=== PATIENT | male | born 1960 | race Two or more races ===

== ENCOUNTER 2020-05-31 18:30 | Inpatient (IN) | payer MEDICARE, MEDICAID ==
[~2020-05-31] VITALS: Ht 170.2 cm; Wt 88.2 kg
[2020-05-31] MEDS ORDERED: methylPREDNISolone SOD SUCC 125 MG/2 ML VL IV ONE (18:45)
[2020-05-31] MEDS ORDERED: ZINC SULFATE 220mg CAP or TAB PO ONE (18:45)
[2020-05-31] MEDS ORDERED: ASCORBIC ACID 500 MG TAB PO ONE (18:45)
[2020-05-31] MEDS ORDERED: REMDESIVIR PER PHARMACY 0 ML IV SCH (18:45)
[2020-05-31 22:25] LABS: Basophils # (auto) 0 10 ^3/uL (0-0.2); Basophils % (auto) 0.5 % (0.0-2.0); Eosinophils # (auto) 0.1 10 ^3/uL (0-0.8); Eosinophils % (auto) 1.1 % (0.0-7.0); Hematocrit 31.2 % (41.0-53.0); Hemoglobin 10.9 g/dL (13.5-17.5); Lymphocytes # (auto) 0.6 10 ^3/uL (0.4-5.4); Lymphocytes % (auto) 11.2 % (10.0-50.0); Mean Corpuscular Hemoglobin 32.3 pg (28.0-32.0); Mean Corpuscular Hgb Conc. 34.9 g/dL (32.0-36.0); Mean Corpuscular Volume 92.7 fL (80.0-100.0); Monocytes # (auto) 0.4 10 ^3/uL (0-1.3); Monocytes % (auto) 6.5 % (0.0-12.0); Neutrophils # (auto) 4.6 10 ^3/uL (1.6-8.6); Neutrophils % (auto) 80.7 % (37.0-80.0); Nucleated Red Blood Cells % 0.1 %; Platelet Count (auto) 157 10^3/uL (140-450); Red Blood Cells 3.36 10^6/uL (4.5-5.90); White Blood Cell 5.7 10^3/uL (4.4-10.8)
[2020-05-31 22:54] LABS: Alanine Aminotransferase 51 U/L (16-61); Albumin 3.3 g/dL (3.4-5.0); Anion Gap 6 (5-15); Blood Urea Nitrogen 28 mg/dL (7-18); Calcium 7.7 mg/dL (8.5-10.1); Carbon Dioxide 27 mmol/L (21-32); Chloride 99 mmol/L (98-107); Glucose 158 mg/dL (74-106); Potassium 4.4 mmol/L (3.5-5.1); Sodium 132 mmol/L (136-145)
[2020-05-31 23:02] LABS: Alkaline Phosphatase 130 U/L (45-117); Aspartate Aminotransferase 36 U/L (15-37); BUN/Creatinine Ratio 4.4; Bilirubin, Total 0.5 mg/dL (0.2-1.0); CRP High Sensitivity 6.74 mg/dL (< 0.3); GFR African American 12 mL/min; GFR Non-African American 10 mL/min; Total Protein 7.6 g/dL (6.4-8.2)
[2020-06-01] MEDS ORDERED: HYDROcodone-ACET 5/325MG TAB PO PRN
[2020-06-01] MEDS ORDERED: DOCUSATE SOD 100 MG CAP PO PRN
[2020-06-01] MEDS ORDERED: ONDANSETRON HCL 4 MG/2 ML VIAL IV PRN
[2020-06-01] MEDS ORDERED: DEXTROSE (50%) 50ML SYRG IV PRN
[2020-06-01] MEDS ORDERED: ACETAMINOPHEN 500 MG TAB PO PRN
[2020-06-01] MEDS ORDERED: NITROGLYCERIN 0.4 MG SL TAB SL PRN
[2020-06-01] MEDS ORDERED: MORPHINE SULF INJ 2 MG/ML SYRINGE 1ML IV PRN
[2020-06-01] MEDS: hydrALAZINE HCL 20 MG/ML VL IV PRN ×3 (02:44→21:38)
[2020-06-01 02:50] VITALS: BP 169/93
[2020-06-01 03:40] VITALS: BP 142/82
[2020-06-01] MEDS: ACCU-CHEK COMFORT CURVE STRIP VI SCH ×4 (06:39→22:22)
[2020-06-01] MEDS: LEVOTHYROXINE SODIUM 25 MCG TAB PO SCH (06:39)
[2020-06-01] MEDS: InsuLIN REG 1unit/0.01ml Soln (100units/ml) SC SCH ×4 (06:42→22:25)
[2020-06-01] MEDS: SODIUM CHLOR 0.9% PF (SALINE LOCK) 10ML VIAL/SYR IV SCH ×3 (06:44→22:22)
[2020-06-01 07:13] LABS: Basophils # (auto) 0 10 ^3/uL (0-0.2); Basophils % (auto) 0.6 % (0.0-2.0); Eosinophils # (auto) 0 10 ^3/uL (0-0.8); Hematocrit 28.7 % (41.0-53.0); Lymphocytes # (auto) 0.7 10 ^3/uL (0.4-5.4); Lymphocytes % (auto) 12.2 % (10.0-50.0); Mean Corpuscular Hemoglobin 31.8 pg (28.0-32.0); Mean Corpuscular Volume 90.9 fL (80.0-100.0); Monocytes # (auto) 0.2 10 ^3/uL (0-1.3); Monocytes % (auto) 4.4 % (0.0-12.0); Neutrophils # (auto) 4.4 10 ^3/uL (1.6-8.6); Neutrophils % (auto) 82.8 % (37.0-80.0); Platelet Count (auto) 163 10^3/uL (140-450); Red Blood Cells 3.16 10^6/uL (4.5-5.90); Red Cell Distribution Width 14.7 % (11.8-14.3); White Blood Cell 5.3 10^3/uL (4.4-10.8)
[2020-06-01 07:33] LABS: Potassium 4.9 mmol/L (3.5-5.1)
[2020-06-01 07:46] LABS: BUN/Creatinine Ratio 5.5; Bilirubin, Total 0.5 mg/dL (0.2-1.0); Calcium 7.9 mg/dL (8.5-10.1); Total Protein 7.1 g/dL (6.4-8.2)
[2020-06-01 08:00] VITALS: BP 157/97
[2020-06-01] MEDS ORDERED: HEPARIN SODIUM (PORCINE) 5000 UNITS/ML 1ML VIAL ONE (09:33)
[2020-06-01] MEDS: HEPARIN SODIUM (PORCINE) 5000 UNITS/ML 1ML VIAL SC SCH ×2 (09:42→22:10)
[2020-06-01] MEDS: ASCORBIC ACID 1,000 MG TAB PO SCH (09:42)
[2020-06-01] MEDS: CHOLECALCIFEROL (VITD3) 2,000 UNIT CAP PO SCH (09:42)
[2020-06-01] MEDS: B-COMPLEX W/ C & FOLIC ACID(NEPHROVITE TAB) PO SCH (09:43)
[2020-06-01] MEDS: ZINC SULFATE 220mg CAP or TAB PO SCH (09:43)
[2020-06-01] MEDS: FAMOTIDINE (10MG/ML) 2ML VL IV SCH ×2 (09:43→22:22)
[2020-06-01] MEDS: DOXYCYCLINE 100MG/250ML 250 ML IV SCH ×2 (09:43→22:00)
[2020-06-01] MEDS ORDERED: DexAMETHasone SOD PHOS 10MG/1ML VIAL INJ IV SCH (10:00)
[2020-06-01] MEDS: BUDESONIDE (INHALATION) 180 MCG IH IN SCH ×2 (10:00→22:00)
[2020-06-01 16:00] VITALS: BP 170/104
[2020-06-01] MEDS ORDERED: REMDESIVIR 200 MG in NS 210ml LOADING DOSE ADULT IV ONE (20:00)
[2020-06-02] VITALS: BP 160/84
[2020-06-02] MEDS: hydrALAZINE HCL 20 MG/ML VL IV PRN ×2 (03:01→18:26)
[2020-06-02 04:12] VITALS: BP 148/81
[2020-06-02] MEDS: SODIUM CHLOR 0.9% PF (SALINE LOCK) 10ML VIAL/SYR IV SCH ×3 (06:09→21:50)
[2020-06-02] MEDS: LEVOTHYROXINE SODIUM 25 MCG TAB PO SCH (06:31)
[2020-06-02] MEDS: ACCU-CHEK COMFORT CURVE STRIP VI SCH ×4 (06:31→21:53)
[2020-06-02] MEDS: InsuLIN REG 1unit/0.01ml Soln (100units/ml) SC SCH ×4 (06:37→21:52)
[2020-06-02] MEDS ORDERED: SODIUM CHL 0.9% 1000 ML BAG XX ONE (07:00)
[2020-06-02 08:00] VITALS: BP 169/98
[2020-06-02] MEDS: FAMOTIDINE (10MG/ML) 2ML VL IV SCH (08:47)
[2020-06-02] MEDS: DexAMETHasone SOD PHOS 10MG/1ML VIAL INJ IV SCH (08:47)
[2020-06-02] MEDS: CHOLECALCIFEROL (VITD3) 2,000 UNIT CAP PO SCH (08:48)
[2020-06-02] MEDS: DOXYCYCLINE 100MG/250ML 250 ML IV SCH ×2 (08:48→21:50)
[2020-06-02] MEDS: ASCORBIC ACID 1,000 MG TAB PO SCH (08:48)
[2020-06-02] MEDS: B-COMPLEX W/ C & FOLIC ACID(NEPHROVITE TAB) PO SCH (08:48)
[2020-06-02] MEDS: ZINC SULFATE 220mg CAP or TAB PO SCH (08:48)
[2020-06-02] MEDS: HEPARIN SODIUM (PORCINE) 5000 UNITS/ML 1ML VIAL SC SCH ×2 (08:55→21:51)
[2020-06-02 09:07] LABS: Albumin 3.2 g/dL (3.4-5.0); BUN/Creatinine Ratio 7.2; Calcium 7.9 mg/dL (8.5-10.1); Potassium 4.6 mmol/L (3.5-5.1)
[2020-06-02 09:10] LABS: Bilirubin, Total 0.5 mg/dL (0.2-1.0); Total Protein 6.6 g/dL (6.4-8.2)
[2020-06-02] MEDS: BUDESONIDE (INHALATION) 180 MCG IH IN SCH ×2 (10:00→18:28)
[2020-06-02] MEDS ORDERED: MORPHINE SULF INJ 2 MG/ML SYRINGE 1ML IV PRN (13:00)
[2020-06-02 16:00] VITALS: BP 169/95
[2020-06-02] MEDS: REMDESIVIR 100mg 100 MG in SODIUM CHL 0.9% 230 ML IV SCH (16:30)
[2020-06-02] MEDS: ALBUTEROL SULF HFA 90MCG INH 200DOSE IN PRN (18:28)
[2020-06-02] MEDS: LORazepam 2MG/ML-1ML VIAL IV PRN (19:02)
[2020-06-02] MEDS ORDERED: EPOETIN ALFA 10,000 UNIT/1 ML VIAL SC ONE (21:00)
[2020-06-02] MEDS: NIFEdipine ER 30 MG TAB PO SCH (21:50)
[2020-06-03] VITALS: BP 170/91
[2020-06-03] MEDS: hydrALAZINE HCL 20 MG/ML VL IV PRN (01:47)
[2020-06-03] MEDS: LORazepam 2MG/ML-1ML VIAL IV PRN ×2 (02:10→20:19)
[2020-06-03] MEDS: SODIUM CHLOR 0.9% PF (SALINE LOCK) 10ML VIAL/SYR IV SCH ×3 (06:32→21:16)
[2020-06-03] MEDS: ACCU-CHEK COMFORT CURVE STRIP VI SCH ×4 (06:33→21:16)
[2020-06-03] MEDS: LEVOTHYROXINE SODIUM 25 MCG TAB PO SCH (06:33)
[2020-06-03] MEDS: InsuLIN REG 1unit/0.01ml Soln (100units/ml) SC SCH ×4 (06:35→21:13)
[2020-06-03] MEDS: BUDESONIDE (INHALATION) 180 MCG IH IN SCH ×2 (07:18→19:24)
[2020-06-03] MEDS: ALBUTEROL SULF HFA 90MCG INH 200DOSE IN PRN ×2 (07:18→19:24)
[2020-06-03 08:00] VITALS: BP 149/84
[2020-06-03] MEDS: NIFEdipine ER 30 MG TAB PO SCH (10:00)
[2020-06-03] MEDS: DOXYCYCLINE 100MG/250ML 250 ML IV SCH ×2 (11:03→21:15)
[2020-06-03] MEDS: DexAMETHasone SOD PHOS 10MG/1ML VIAL INJ IV SCH (11:03)
[2020-06-03] MEDS: FAMOTIDINE 20 MG TAB PO SCH (11:05)
[2020-06-03] MEDS: CHOLECALCIFEROL (VITD3) 2,000 UNIT CAP PO SCH (11:05)
[2020-06-03] MEDS: ZINC SULFATE 220mg CAP or TAB PO SCH (11:05)
[2020-06-03] MEDS: ASCORBIC ACID 1,000 MG TAB PO SCH (11:05)
[2020-06-03] MEDS: B-COMPLEX W/ C & FOLIC ACID(NEPHROVITE TAB) PO SCH (11:05)
[2020-06-03] MEDS: HEPARIN SODIUM (PORCINE) 5000 UNITS/ML 1ML VIAL SC SCH ×2 (11:07→21:13)
[2020-06-03] MEDS ORDERED: CLON0.1T PO (14:17)
[2020-06-03] MEDS ORDERED: MIRT-66 PO (14:17)
[2020-06-03] MEDS ORDERED: SODI5PAK PO (14:17)
[2020-06-03] MEDS ORDERED: RIS1T PO (14:17)
[2020-06-03] MEDS ORDERED: NIFE90TA49 PO (14:17)
[2020-06-03] MEDS ORDERED: INSU1.2I SC (14:17)
[2020-06-03] MEDS ORDERED: CINA30TA3 PO (14:17)
[2020-06-03] MEDS ORDERED: BENZ1TAB2 PO (14:17)
[2020-06-03] MEDS ORDERED: SEVE800T10 PO (14:17)
[2020-06-03] MEDS ORDERED: ATOR10TA PO (14:17)
[2020-06-03] MEDS ORDERED: DULO1CAP5 PO (14:17)
[2020-06-03] MEDS ORDERED: DULA0.5I SC (14:17)
[2020-06-03] MEDS ORDERED: INSLISPI SC (14:17)
[2020-06-03] MEDS ORDERED: DONE1TAB88 PO (14:17)
[2020-06-03] MEDS ORDERED: LEVO75TA6 PO (14:17)
[2020-06-03] MEDS ORDERED: LISI-646 PO (14:17)
[2020-06-03] MEDS ORDERED: MEMA1TAB5 PO (14:17)
[2020-06-03] MEDS ORDERED: DOCU100T15 PO (14:17)
[2020-06-03] MEDS ORDERED: CHOL100029 PO (14:17)
[2020-06-03] MEDS ORDERED: ISOS30TA4 PO (14:17)
[2020-06-03] MEDS ORDERED: CLON0.5T3 PO (14:17)
[2020-06-03] MEDS ORDERED: PREG50CA PO (14:17)
[2020-06-03] MEDS ORDERED: METO-158 PO (14:17)
[2020-06-03] MEDS ORDERED: FERR-20 PO (14:17)
[2020-06-03] MEDS: REMDESIVIR 100mg 100 MG in SODIUM CHL 0.9% 230 ML IV SCH (15:32)
[2020-06-03 16:00] VITALS: BP 158/85
[2020-06-03] MEDS ORDERED: SODIUM CHL 0.9% 1000 ML BAG XX ONE (18:15)
[2020-06-03] MEDS: risperiDONE 1 MG TAB PO SCH (21:15)
[2020-06-03] MEDS: clonazePAM 0.5 MG TAB PO SCH (21:15)
[2020-06-04] VITALS: BP 150/89
[2020-06-04] MEDS: ALBUTEROL SULF HFA 90MCG INH 200DOSE IN PRN (05:51)
[2020-06-04] MEDS: BUDESONIDE (INHALATION) 180 MCG IH IN SCH (05:51)
[2020-06-04] MEDS: clonazePAM 0.5 MG TAB PO SCH ×2 (06:06→13:44)
[2020-06-04] MEDS: LEVOTHYROXINE SODIUM 25 MCG TAB PO SCH (06:06)
[2020-06-04] MEDS: SODIUM CHLOR 0.9% PF (SALINE LOCK) 10ML VIAL/SYR IV SCH ×2 (06:06→13:46)
[2020-06-04] MEDS: ACCU-CHEK COMFORT CURVE STRIP VI SCH ×3 (06:29→17:49)
[2020-06-04] MEDS: InsuLIN REG 1unit/0.01ml Soln (100units/ml) SC SCH ×3 (06:29→17:41)
[2020-06-04 07:09] LABS: Basophils # (auto) 0 10 ^3/uL (0-0.2); Basophils % (auto) 0.2 % (0.0-2.0); Eosinophils # (auto) 0 10 ^3/uL (0-0.8); Eosinophils % (auto) 0.1 % (0.0-7.0); Hematocrit 32.1 % (41.0-53.0); Hemoglobin 10.7 g/dL (13.5-17.5); Lymphocytes # (auto) 1.1 10 ^3/uL (0.4-5.4); Lymphocytes % (auto) 16.6 % (10.0-50.0); Mean Corpuscular Hemoglobin 30.9 pg (28.0-32.0); Mean Corpuscular Hgb Conc. 33.3 g/dL (32.0-36.0); Mean Corpuscular Volume 92.8 fL (80.0-100.0); Monocytes # (auto) 0.7 10 ^3/uL (0-1.3); Neutrophils # (auto) 4.9 10 ^3/uL (1.6-8.6); Neutrophils % (auto) 73.1 % (37.0-80.0); Nucleated Red Blood Cells % 0.2 %; Platelet Count (auto) 229 10^3/uL (140-450); Red Blood Cells 3.46 10^6/uL (4.5-5.90); White Blood Cell 6.6 10^3/uL (4.4-10.8)
[2020-06-04 08:00] VITALS: BP 129/71
[2020-06-04] MEDS ORDERED: DULoxetine HCL 30 MG CAP PO SCH (10:00)
[2020-06-04 10:32] LABS: Albumin 3.1 g/dL (3.4-5.0); Calcium 8.5 mg/dL (8.5-10.1)
[2020-06-04 10:42] LABS: Bilirubin, Total 0.4 mg/dL (0.2-1.0); CRP High Sensitivity 9.1 mg/dL (< 0.3); Total Protein 6.7 g/dL (6.4-8.2)
[2020-06-04] MEDS: DOXYCYCLINE 100MG/250ML 250 ML IV SCH (11:59)
[2020-06-04] MEDS: DexAMETHasone SOD PHOS 10MG/1ML VIAL INJ IV SCH (12:00)
[2020-06-04] MEDS: ZINC SULFATE 220mg CAP or TAB PO SCH (12:00)
[2020-06-04] MEDS: risperiDONE 1 MG TAB PO SCH (12:01)
[2020-06-04] MEDS: CHOLECALCIFEROL (VITD3) 2,000 UNIT CAP PO SCH (12:01)
[2020-06-04] MEDS: B-COMPLEX W/ C & FOLIC ACID(NEPHROVITE TAB) PO SCH (12:01)
[2020-06-04] MEDS: ASCORBIC ACID 1,000 MG TAB PO SCH (12:01)
[2020-06-04] MEDS: FAMOTIDINE 20 MG TAB PO SCH (12:01)
[2020-06-04] MEDS: NIFEdipine ER 30 MG TAB PO SCH (12:02)
[2020-06-04] MEDS: HEPARIN SODIUM (PORCINE) 5000 UNITS/ML 1ML VIAL SC SCH (12:11)
[2020-06-04] MEDS: REMDESIVIR 100mg 100 MG in SODIUM CHL 0.9% 230 ML IV SCH (16:19)
[2020-06-04 16:30] VITALS: BP 138/76
[2020-06-06] MEDS ORDERED: FAMOTIDINE 20 MG TAB PO SCH (10:00)
== END 2020-06-04 18:50 | disposition home or self-care (01) | DRG 871 ==
LOC: ER 18:30 → TELE 23:46 → TELE-WESTW 06-01 01:10
PROVIDERS: ADMIT Nurse Practitioner Family; ATTEND Internal Medicine
PROC: XW033E5 Introduction of Remdesivir Anti-infective into Peripheral Vein, Percutaneous Approach, New Technology Group 5 (ICD-10-PCS; principal; 2020-05-31)
PROC: 5A1D70Z Performance of Urinary Filtration, Intermittent, Less than 6 Hours Per Day (ICD-10-PCS; 2020-06-03)
DX: A41.89 Other specified sepsis (principal); U07.1 COVID-19; J12.82 Pneumonia due to coronavirus disease 2019; N18.6 End stage renal disease; J96.01 Acute respiratory failure with hypoxia; I12.0 Hypertensive chronic kidney disease with stage 5 chronic kidney disease or end stage renal disease; E11.65 Type 2 diabetes mellitus with hyperglycemia; E03.9 Hypothyroidism, unspecified; E11.22 Type 2 diabetes mellitus with diabetic chronic kidney disease; D64.9 Anemia, unspecified; F99 Mental disorder, not otherwise specified; F32.9 Major depressive disorder, single episode, unspecified; Z99.2 Dependence on renal dialysis; Z80.0 Family history of malignant neoplasm of digestive organs; Z82.49 Family history of ischemic heart disease and other diseases of the circulatory system; Z88.0 Allergy status to penicillin; Z88.6 Allergy status to analgesic agent; Z79.4 Long term (current) use of insulin
CPT/HCPCS: 36415; 71045; 80053; 82306; 82728; 82962; 83036; 83605; 83615; 83735; 84443; 84484; 85025; 85379; 86141; 87040; 87426; 90935; 94640; 96374; G0378; J0885; J1100; J1642; J1815; J3490